=== PATIENT | male | born 1955 | race Caucasian/White ===

== ENCOUNTER 2018-01-11 14:59 | Inpatient (IN) | payer MEDICARE, BC ==
[2018-01-11] VITALS (7 sets, daily range): BP systolic 81–102; BP diastolic 62–84
[~2018-01-11] VITALS: Ht 175.3 cm; Wt 176.0 kg
[2018-01-11] MEDS ORDERED: fentaNYL/PF 50MCG/1 ML 2ML syringe IV ONE (15:05)
[2018-01-11 15:17] LABS: BASOPHILS % (AUTO) 0.4 % (0-1); EOSINOPHILS # (AUTO) 0.1 X10'3 (0-0.9); EOSINOPHILS % (AUTO) 1.2 % (0-6); HEMATOCRIT 48.6 % (42.0-52.0); HEMOGLOBIN 15.2 g/dl (14.0-17.9); LYMPHOCYTES # (AUTO) 1.7 X10'3 (1.1-4.8); LYMPHOCYTES % (AUTO) 16.1 % (21-51); MEAN CORPUSCULAR HEMOGLOBIN 26.4 PG (27.0-31.0); MEAN CORPUSCULAR HGB CONC 31.2 % (33.0-36.5); MEAN CORPUSCULAR VOLUME 84.4 FL (78-98); MEAN PLATELET VOLUME 9.6 FL (7.4-10.4); MONOCYTES # (AUTO) 1.3 X10'3 (0-0.9); MONOCYTES % (AUTO) 12.5 % (2-12); NEUTROPHILS # (AUTO) 7.3 X10'3 (1.8-7.7); NEUTROPHILS % (AUTO) 69.8 % (42-75); PLATELET COUNT 301 X10'3 (140-440); RED BLOOD COUNT 5.76 X10'6 (4.70-6.10); RED CELL DISTRIBUTION WIDTH 17.4 % (11.5-14.5); WHITE BLOOD COUNT 10.5 X10'3 (4.5-11.0)
[2018-01-11] MEDS: DIPRIVAN 10 MG/ML IV PRN ×2 (15:26→22:32)
[2018-01-11 15:29] LABS: INR 1.2 INR; PARTIAL THROMBOPLASTIN TIME 28 SECONDS (22-32); PROTHROMBIN TIME 12.5 SECONDS (9.0-12.0)
[2018-01-11 15:33] LABS: ALANINE AMINOTRANSFERASE 30 U/L (12-78); ALBUMIN 2.5 G/DL (3.4-5.0); ALBUMIN/GLOBULIN RATIO 0.5 (1.1-1.5); ALKALINE PHOSPHATASE 123 IU/L (46-116); ANION GAP -2 (8-16); ASPARTATE AMINO TRANSFERASE 16 U/L (10-37); BILIRUBIN,TOTAL 1.1 MG/DL (0.1-1.0); BLOOD UREA NITROGEN 34 MG/DL (7-18); BUN/CREATININE RATIO 17.5 (5.4-32.0); CALCIUM 9.7 MG/DL (8.5-10.1); CHLORIDE 100 MMOL/L (99-107); CREATININE 1.94 MG/DL (0.60-1.10); GLUCOSE 123 MG/DL (70-104); POTASSIUM 4.5 MMOL/L (3.5-5.1); SODIUM 142 MMOL/L (135-145); TOTAL PROTEIN 7.2 G/DL (6.4-8.2); eGFR 35 ML/MIN
[2018-01-11] MEDS ORDERED: FENTANYL-0.9 % NACL/PF 100 ML IV PRN (15:38)
[2018-01-11] MEDS: normal saline 1000ml 1,000 ML IV SCH (15:38)
[2018-01-11] MEDS ORDERED: acetaminophen 325mg tablet PO PRN ×2 (15:40)
[2018-01-11] MEDS ORDERED: potassium Cl 40MEQ/NS 500ml 500 ML IV PRN ×2 (15:40)
[2018-01-11] MEDS ORDERED: potassium Cl 20 mEq SR tablet PO PRN ×2 (15:40)
[2018-01-11] MEDS ORDERED: fentaNYL/PF 50MCG/1 ML 2ML syringe IV PRN (15:40)
[2018-01-11] MEDS ORDERED: midazolam 2 mg/2 ml injection IV ONE (15:40)
[2018-01-11] MEDS ORDERED: ondansetron/PF 4mg/2ml inj IV PRN (15:40)
[2018-01-11] MEDS ORDERED: ipratropium/albuterol 3ml nebule NEB PRN (15:40)
[2018-01-11 16:06] LABS: ABG BASE EXCESS 10.4 mmol/L (-2.0-3.0); ABG HCO3 36.4 mmol/L (22.0-26.0); ABG OXYGEN SATURATION 98.7 % (95-98); ABG PH (T) 7.447 (7.350-7.450); ABG PO2 (T) 144.3 mmHg (83-108); FCOHb 0.9 % (0.5-1.5); FMetHb 0.1 % (0.3-1.12); FO2Hb 97.7 % (94-100); MINUTE VOLUME 8 L/min; PEEP 5 cm H2O; RESPIRATORY RATE 18 b/min; TIDAL VOLUME 450 mL; TOTAL HEMOGLOBIN 14.3 G/dl (14.0-18.0)
[2018-01-11] MEDS: midazolam 100mg in NS 100ml 100 ML IV PRN (16:40)
[2018-01-11] MEDS ORDERED: LANTUS SQ (17:33)
[2018-01-11] MEDS ORDERED: LISI10TA4 PO (17:33)
[2018-01-11] MEDS ORDERED: LEVO112T5 PO (17:33)
[2018-01-11] MEDS ORDERED: FAMO20TA8 PO (17:33)
[2018-01-11] MEDS ORDERED: INSU100V30 SQ (17:33)
[2018-01-11] MEDS ORDERED: FURO40TA4 PO (17:33)
[2018-01-11] MEDS ORDERED: DOCU100C41 PO (17:33)
[2018-01-11] MEDS ORDERED: POLY17PO10 PO (17:33)
[2018-01-11] MEDS ORDERED: OLAN5TAB26 PO (17:33)
[2018-01-11] MEDS ORDERED: DILT30TA34 PO (17:33)
[2018-01-11] MEDS ORDERED: LACT1CAP26 PO (17:33)
[2018-01-11] MEDS ORDERED: ATR0.5NEB IH (17:33)
[2018-01-11] MEDS ORDERED: CARV25TA PO (17:33)
[2018-01-11] MEDS ORDERED: ASPI81TA46 PO (17:33)
[2018-01-11] MEDS ORDERED: HEPA1DIS10 SQ (17:33)
[2018-01-11] MEDS ORDERED: ALBU2.5V12 NEB (17:33)
[2018-01-11] MEDS ORDERED: AMIO200T57 PO (17:33)
[2018-01-11] MEDS ORDERED: PRAV80TA3 PO (17:33)
[2018-01-11] MEDS ORDERED: SENN-161 PO (17:33)
[2018-01-11] MEDS: ipratropium/albuterol 3ml nebule NEB SCH ×2 (19:49→23:36)
[2018-01-11] MEDS: docusate sod 100mg capsule PO SCH (20:00)
[2018-01-11 20:02] LABS: HEMOGLOBIN A1C 7.8 % (4.5-6.2)
[2018-01-12] VITALS (25 sets, daily range): BP systolic 78–139; BP diastolic 48–80
[2018-01-12] MEDS: normal saline 1000ml 1,000 ML IV SCH ×2 (01:19→18:18)
[2018-01-12] MEDS: midazolam 100mg in NS 100ml 100 ML IV PRN (01:22)
[2018-01-12] MEDS ORDERED: dextrose 50%-water 50ml dispensing syringe IV ONE ×2 (02:54→14:55)
[2018-01-12] MEDS: ipratropium/albuterol 3ml nebule NEB SCH ×5 (03:38→19:09)
[2018-01-12 05:01] LABS: ABG BASE EXCESS 11.3 mmol/L (-2.0-3.0); ABG HCO3 38.3 mmol/L (22.0-26.0); ABG OXYGEN SATURATION 89.7 % (95-98); ABG PCO2 (T) 62.6 mmHg (35.0-48.0); ABG PH (T) 7.408 (7.350-7.450); ALLEN'S TEST Positive; FMetHb 0.2 % (0.3-1.12); FO2Hb 88.6 % (94-100); MINUTE VOLUME 6 L/min; PATIENT TEMPERATURE 37.7; PEEP 5 cm H2O; RESPIRATORY RATE 20 b/min; RESPIRATORY RATE (OBSERVED) 20 b/min; TIDAL VOLUME 30 mL; TOTAL HEMOGLOBIN 13.6 G/dl (14.0-18.0)
[2018-01-12 05:14] LABS: BASOPHILS % (AUTO) 0.2 % (0-1); EOSINOPHILS # (AUTO) 0.1 X10'3 (0-0.9); EOSINOPHILS % (AUTO) 0.7 % (0-6); HEMATOCRIT 39.7 % (42.0-52.0); HEMOGLOBIN 12.8 g/dl (14.0-17.9); LYMPHOCYTES # (AUTO) 1.5 X10'3 (1.1-4.8); LYMPHOCYTES % (AUTO) 14.8 % (21-51); MEAN CORPUSCULAR HEMOGLOBIN 26.8 PG (27.0-31.0); MEAN CORPUSCULAR HGB CONC 32.2 % (33.0-36.5); MEAN PLATELET VOLUME 9.5 FL (7.4-10.4); MONOCYTES # (AUTO) 1.4 X10'3 (0-0.9); MONOCYTES % (AUTO) 14.2 % (2-12); NEUTROPHILS % (AUTO) 70.1 % (42-75); PLATELET COUNT 236 X10'3 (140-440); RED BLOOD COUNT 4.78 X10'6 (4.70-6.10); RED CELL DISTRIBUTION WIDTH 17.2 % (11.5-14.5); WHITE BLOOD COUNT 9.9 X10'3 (4.5-11.0)
[2018-01-12 06:02] LABS: ALANINE AMINOTRANSFERASE 21 U/L (12-78); ALBUMIN/GLOBULIN RATIO 0.5 (1.1-1.5); ANION GAP 3 (8-16); ASPARTATE AMINO TRANSFERASE 16 U/L (10-37); BILIRUBIN,TOTAL 1.2 MG/DL (0.1-1.0); BLOOD UREA NITROGEN 37 MG/DL (7-18); BUN/CREATININE RATIO 17.6 (5.4-32.0); CALCIUM 9.1 MG/DL (8.5-10.1); CHLORIDE 103 MMOL/L (99-107); GLUCOSE 105 MG/DL (70-104); SODIUM 144 MMOL/L (135-145); TOTAL CARBON DIOXIDE 38.3 MMOL/L (24-32); TOTAL PROTEIN 5.9 G/DL (6.4-8.2); eGFR 32 ML/MIN
[2018-01-12 06:03] LABS: ALKALINE PHOSPHATASE 99 IU/L (46-116)
[2018-01-12 06:09] LABS: PHOSPHORUS 3.7 MG/DL (2.3-4.5)
[2018-01-12] MEDS: docusate sod 100mg capsule PO SCH ×2 (07:13→20:00)
[2018-01-12] MEDS ORDERED: CefTRIAXone 2gm/D5W 50ml 50 ML IV SCH (09:20)
[2018-01-12] MEDS ORDERED: levoFLOXACIN-Levaquin 750MG/D5 150 ML IV SCH (09:20)
[2018-01-12] MEDS ORDERED: polyethylene glycol 3350 17gm powd pack PO SCH (13:00)
[2018-01-12 17:11] LABS: ABG BASE EXCESS 12.7 mmol/L (-2.0-3.0); ABG HCO3 34.2 mmol/L (22.0-26.0); ABG OXYGEN SATURATION 87.8 % (95-98); ABG PCO2 (T) 33.1 mmHg (35.0-48.0); ABG PH (T) 7.632 (7.350-7.450); ABG PO2 (T) 44.9 mmHg (83-108); ALLEN'S TEST Positive; FCOHb 0.6 % (0.5-1.5); FO2Hb 87.3 % (94-100); MINUTE VOLUME 13 L/min; PEEP 10 cm H2O; RESPIRATORY RATE 20 b/min; RESPIRATORY RATE (OBSERVED) 20 b/min; TIDAL VOLUME 600 mL; TOTAL HEMOGLOBIN 13.9 G/dl (14.0-18.0)
[2018-01-12] MEDS ORDERED: lactobacillus rhamnosus 10,000 MMU CELLS/CAPSULE PO SCH (20:00)
[2018-01-12] MEDS ORDERED: mineral oil/petrolatum ophthal oint EACHEYE SCH (20:00)
[2018-01-12 20:21] LABS: ABG BASE EXCESS 8.8 mmol/L (-2.0-3.0); ABG HCO3 33.5 mmol/L (22.0-26.0); ABG PCO2 (T) 48.1 mmHg (35.0-48.0); ABG PH (T) 7.465 (7.350-7.450); ABG PO2 (T) 66.1 mmHg (83-108); FCOHb 0.9 % (0.5-1.5); FO2Hb 91.2 % (94-100); MINUTE VOLUME 8 L/min; PEEP 10 cm H2O; RESPIRATORY RATE 14 b/min; RESPIRATORY RATE (OBSERVED) 16 b/min; TIDAL VOLUME 450 mL; TOTAL HEMOGLOBIN 14.2 G/dl (14.0-18.0)
[2018-01-12] MEDS ORDERED: sennosides 8.6mg tablet PO SCH (21:00)
[2018-01-12] MEDS ORDERED: OLANZapine 2.5MG tablet PO SCH (21:00)
[2018-01-12] MEDS ORDERED: atorvastatin 20mg tablet PO SCH (21:00)
[2018-01-12] MEDS ORDERED: amiodarone 150mg/dext, iso-os 100 ML IV ONE ×2 (21:12→21:15)
[2018-01-12] MEDS ORDERED: amiodarone/D5 360MG/200ML BAG 200 ML IV SCH (21:15)
[2018-01-13] MEDS ORDERED: levoTHYROXINE 112mcg tablet PO SCH (07:00)
== END 2018-01-12 22:30 | disposition expired | DRG 871 ==
LOC: ER 14:59 → ED HOLD 15:38 → EDBEDREQ 16:26 → CICU 2S 17:30
PROVIDERS: ADMIT Internal Medicine Critical Care Medicine; ATTEND Internal Medicine Critical Care Medicine
PROC: 5A09357 Assistance with Respiratory Ventilation, Less than 24 Consecutive Hours, Continuous Positive Airway Pressure (ICD-10-PCS; principal; 2018-01-11)
PROC: 5A1945Z Respiratory Ventilation, 24-96 Consecutive Hours (ICD-10-PCS; 2018-01-11)
PROC: 0BH17EZ Insertion of Endotracheal Airway into Trachea, Via Natural or Artificial Opening (ICD-10-PCS; 2018-01-11)
DX: A41.9 Sepsis, unspecified organism (principal); G93.41 Metabolic encephalopathy; J18.9 Pneumonia, unspecified organism; R65.21 Severe sepsis with septic shock; J96.21 Acute and chronic respiratory failure with hypoxia; J44.0 Chronic obstructive pulmonary disease with (acute) lower respiratory infection; Z68.43 Body mass index [BMI] 50.0-59.9, adult; H05.20 Unspecified exophthalmos; E03.9 Hypothyroidism, unspecified; E11.9 Type 2 diabetes mellitus without complications; E66.01 Morbid (severe) obesity due to excess calories; G47.33 Obstructive sleep apnea (adult) (pediatric); I48.2 Chronic atrial fibrillation; I50.9 Heart failure, unspecified; N19 Unspecified kidney failure; Z51.5 Encounter for palliative care; Z66 Do not resuscitate; Z89.512 Acquired absence of left leg below knee; Z79.899 Other long term (current) drug therapy; Z79.82 Long term (current) use of aspirin; Z79.4 Long term (current) use of insulin
CPT/HCPCS: 36415; 36600; 71045; 71250; 76604; 80053; 82803; 82948; 83036; 83735; 84100; 84484; 85018; 85025; 85610; 85730; 87040; 87070; 94002; 94003; 94640; 94760; 96374; 99291; A6213; A7015; C1758; J0282; J0696; J1956; J2250; J2704; J3010; J7030